=== PATIENT | female | born 1935 | race Caucasian/White ===

== ENCOUNTER 2021-02-20 10:58 | Inpatient (IN) | payer MEDICARE, BC ==
[~2021-02-20] VITALS: Ht 162.6 cm; Wt 65.6 kg
[2021-02-20] MEDS ORDERED: levETIRAcetam 500 MG/5ML INJ IV ONE (11:39)
[2021-02-20 12:19] LABS: Basophils # (auto) 0 10 ^3/uL (0-0.2); Basophils % (auto) 0.3 % (0.0-2.0); Eosinophils # (auto) 0.1 10 ^3/uL (0-0.8); Eosinophils % (auto) 0.5 % (0.0-7.0); Hematocrit 37.7 % (36.0-46.0); Hemoglobin 12.6 g/dL (12.2-16.2); Lymphocytes # (auto) 2.5 10 ^3/uL (0.4-5.4); Lymphocytes % (auto) 24.1 % (10.0-50.0); Mean Corpuscular Hemoglobin 28.9 pg (28.0-32.0); Mean Corpuscular Hgb Conc. 33.3 g/dL (32.0-36.0); Mean Corpuscular Volume 86.6 fL (80.0-100.0); Monocytes # (auto) 0.8 10 ^3/uL (0-1.3); Monocytes % (auto) 7.6 % (0.0-12.0); Neutrophils # (auto) 7.1 10 ^3/uL (1.6-8.6); Neutrophils % (auto) 67.5 % (37.0-80.0); Red Blood Cells 4.35 10^6/uL (4.0-5.20); Red Cell Distribution Width 13.9 % (11.8-14.3); White Blood Cell 10.6 10^3/uL (4.4-10.8)
[2021-02-20] MEDS ORDERED: VANCOMYCIN 1,500 MG in D5W 5% 250 ML IV ONE (12:30)
[2021-02-20 12:47] LABS: Albumin 2.6 g/dL (3.4-5.0); Magnesium 1.7 mg/dL (1.6-2.6); Potassium 3.9 mmol/L (3.5-5.1)
[2021-02-20 12:52] LABS: Bilirubin, Total 0.2 mg/dL (0.2-1.0); Total Protein 6.9 g/dL (6.4-8.2)
[2021-02-20] MEDS ORDERED: IOHEXOL 300 MG/ML 100ML BOTTLE IJ ONE (13:05)
[2021-02-20] MEDS ORDERED: MORPHINE SULF INJ 2 MG/ML SYRINGE 1ML IV PRN ×3 (15:30→16:45)
[2021-02-20] MEDS ORDERED: NITROGLYCERIN 0.4 MG SL TAB SL PRN ×2 (15:30→16:45)
[2021-02-20] MEDS ORDERED: LORazepam 0.5 MG TAB PO PRN (16:45)
[2021-02-20] MEDS ORDERED: ACYCLOVIR SOD 50MG/ML 500 MG in D5W 5% 100 ML IV ONE (16:45)
[2021-02-20] MEDS ORDERED: hydrALAZINE HCL 20 MG/ML VL IV PRN (16:45)
[2021-02-20] MEDS ORDERED: ONDANSETRON HCL 4 MG/2 ML VIAL IV PRN (16:45)
[2021-02-20] MEDS ORDERED: SUCRALFATE 1 GM/10 ML ORAL SUSP PO ONE (16:45)
[2021-02-20] MEDS ORDERED: ALUM & MAG HYDROX-SIMETH LIQ(MAALOX) 30 ML PO PRN (16:45)
[2021-02-20] MEDS ORDERED: LORazepam 2MG/ML-1ML VIAL IV PRN (16:45)
[2021-02-20] MEDS ORDERED: ACETAMINOPHEN 325 MG TAB PO PRN (16:45)
[2021-02-20] MEDS ORDERED: VANCOMYCIN PER PHARMACY 0 MG IV SCH (16:45)
[2021-02-20] MEDS ORDERED: AMPICILLIN INJ 1 GM in SODIUM CHL 0.9% 50 ML IV ONE (16:45)
[2021-02-20] MEDS ORDERED: LACTATED RINGER'S 1,000 ML IV ONE (16:45)
[2021-02-20] MEDS ORDERED: HYDROcodone-ACET 5/325MG TAB PO PRN (16:45)
[2021-02-20] MEDS ORDERED: METOPROLOL SUCCINATE XL 50 MG TAB PO ONE (16:45)
[2021-02-20] MEDS ORDERED: DOCUSATE SOD 100 MG CAP PO PRN (16:45)
[2021-02-20] MEDS: InsuLIN REG 1unit/0.01ml Soln (100units/ml) SC SCH ×2 (17:00→22:55)
[2021-02-20] MEDS: ACCU-CHEK COMFORT CURVE STRIP VI SCH ×2 (17:00→22:56)
[2021-02-20] MEDS: SUCRALFATE 1 GM/10 ML ORAL SUSP PO SCH ×2 (17:00→22:00)
[2021-02-20] MEDS ORDERED: cefTRIAXone 1GM/50ML D5W 50 ML IV ONE (17:30)
[2021-02-20] MEDS: ACYCLOVIR SOD 50MG/ML 500 MG in D5W 5% 100 ML IV SCH (18:14)
[2021-02-20 19:48] LABS: Folate (Folic Acid) > 24.00 ng/mL (5.38-24)
[2021-02-20 19:48] LABS: Cholesterol 139 mg/dL (< 200); Triglycerides 154 mg/dL (< 150)
[2021-02-20 19:50] LABS: HDL Cholesterol 54 mg/dL (40-59); LDL Cholesterol 59 mg/dL (< 100)
[2021-02-20] MEDS: AMPICILLIN INJ 1 GM in SODIUM CHL 0.9% 50 ML IV SCH ×2 (21:28→23:22)
[2021-02-20] MEDS: LACTATED RINGER'S 1,000 ML IV SCH (21:32)
[2021-02-20 21:55] VITALS: BP 148/92
[2021-02-20 22:00] VITALS: BP 148/92
[2021-02-20] MEDS: FAMOTIDINE (10MG/ML) 2ML VL IV SCH (22:46)
[2021-02-20 23:58] LABS: INR 0.94 (0.9-1.15); Partial Thromboplastin Time 23.6 sec (23.6-33.0)
[2021-02-21] MEDS: ACYCLOVIR SOD 50MG/ML 500 MG in D5W 5% 100 ML IV SCH ×3 (00:37→17:20)
[2021-02-21 05:00] VITALS: BP 147/79
[2021-02-21] MEDS: AMPICILLIN INJ 1 GM in SODIUM CHL 0.9% 50 ML IV SCH ×3 (06:03→18:31)
[2021-02-21] MEDS: LACTATED RINGER'S 1,000 ML IV SCH ×2 (06:05→20:32)
[2021-02-21] MEDS ORDERED: MET25T PO (06:34)
[2021-02-21] MEDS ORDERED: ALPR0.255 PO (06:34)
[2021-02-21] MEDS ORDERED: SUCR1TAB PO (06:34)
[2021-02-21] MEDS ORDERED: OMEP20TA PO (06:34)
[2021-02-21] MEDS ORDERED: LISI40TA11 PO (06:34)
[2021-02-21] MEDS ORDERED: LEVO50TA7 PO (06:34)
[2021-02-21] MEDS ORDERED: METF-370 (06:34)
[2021-02-21] MEDS ORDERED: AMLO-489 PO (06:34)
[2021-02-21] MEDS ORDERED: DONE5TAB80 PO (06:34)
[2021-02-21] MEDS: SUCRALFATE 1 GM/10 ML ORAL SUSP PO SCH ×4 (06:37→22:00)
[2021-02-21] MEDS: LEVOTHYROXINE SODIUM 50 MCG TAB PO SCH (06:37)
[2021-02-21] MEDS: ACCU-CHEK COMFORT CURVE STRIP VI SCH ×4 (06:38→22:01)
[2021-02-21] MEDS: InsuLIN REG 1unit/0.01ml Soln (100units/ml) SC SCH ×4 (06:38→22:01)
[2021-02-21 09:00] VITALS: BP 146/80
[2021-02-21] MEDS: METOPROLOL SUCCINATE XL 50 MG TAB PO SCH (10:00)
[2021-02-21] MEDS: LISINOPRIL 10 MG TAB PO SCH (10:00)
[2021-02-21] MEDS: ENOXAPARIN SOD 40 MG/0.4 ML SYRINGE SC SCH (10:22)
[2021-02-21] MEDS: FAMOTIDINE (10MG/ML) 2ML VL IV SCH (10:22)
[2021-02-21] MEDS: VANCOMYCIN 1GM/250ML 250 ML IV SCH (10:26)
[2021-02-21] MEDS: cefTRIAXone 1GM/50ML D5W 50 ML IV SCH (10:26)
[2021-02-21 13:00] VITALS: BP 120/74
[2021-02-21 13:46] LABS: Basophils # (auto) 0.1 10 ^3/uL (0-0.2); Basophils % (auto) 0.7 % (0.0-2.0); Eosinophils # (auto) 0 10 ^3/uL (0-0.8); Eosinophils % (auto) 0.4 % (0.0-7.0); Hematocrit 35.6 % (36.0-46.0); Hemoglobin 11.6 g/dL (12.2-16.2); Lymphocytes # (auto) 2.7 10 ^3/uL (0.4-5.4); Lymphocytes % (auto) 23.5 % (10.0-50.0); Mean Corpuscular Hemoglobin 28.1 pg (28.0-32.0); Mean Corpuscular Hgb Conc. 32.5 g/dL (32.0-36.0); Mean Corpuscular Volume 86.3 fL (80.0-100.0); Monocytes % (auto) 8.4 % (0.0-12.0); Neutrophils # (auto) 7.6 10 ^3/uL (1.6-8.6); Red Blood Cells 4.13 10^6/uL (4.0-5.20); Red Cell Distribution Width 13.9 % (11.8-14.3); White Blood Cell 11.4 10^3/uL (4.4-10.8)
[2021-02-21 14:01] LABS: BUN/Creatinine Ratio 19.5; Calcium 8.3 mg/dL (8.5-10.1); Potassium 3.6 mmol/L (3.5-5.1)
[2021-02-21 18:00] VITALS: BP 150/87
[2021-02-21] MEDS ORDERED: DONEPEZIL HYDROCHLORIDE 5 MG TAB PO SCH (22:00)
[2021-02-22] MEDS: AMPICILLIN INJ 1 GM in SODIUM CHL 0.9% 50 ML IV SCH ×3 (01:12→12:00)
[2021-02-22] MEDS: ACYCLOVIR SOD 50MG/ML 500 MG in D5W 5% 100 ML IV SCH ×2 (01:45→08:34)
[2021-02-22] MEDS: VANCOMYCIN 1GM/250ML 250 ML IV SCH (03:14)
[2021-02-22] MEDS ORDERED: METOPROLOL TARTRATE 1MG/1ML-5ML VIAL IV PRN (04:45)
[2021-02-22 05:28] VITALS: BP 139/92
[2021-02-22] MEDS: LEVOTHYROXINE SODIUM 50 MCG TAB PO SCH (06:10)
[2021-02-22] MEDS: SUCRALFATE 1 GM/10 ML ORAL SUSP PO SCH ×2 (06:10→11:00)
[2021-02-22] MEDS: ACCU-CHEK COMFORT CURVE STRIP VI SCH (06:35)
[2021-02-22] MEDS: InsuLIN REG 1unit/0.01ml Soln (100units/ml) SC SCH (06:35)
[2021-02-22 07:28] LABS: Basophils # (auto) 0 10 ^3/uL (0-0.2); Monocytes # (auto) 0.6 10 ^3/uL (0-1.3)
[2021-02-22 07:35] LABS: Basophils % (auto) 0.3 % (0.0-2.0); Eosinophils # (auto) 0.1 10 ^3/uL (0-0.8); Eosinophils % (auto) 0.8 % (0.0-7.0); Hematocrit 38.2 % (36.0-46.0); Hemoglobin 12.5 g/dL (12.2-16.2); Lymphocytes # (auto) 2.3 10 ^3/uL (0.4-5.4); Lymphocytes % (auto) 27.7 % (10.0-50.0); Mean Corpuscular Hemoglobin 28.8 pg (28.0-32.0); Mean Corpuscular Hgb Conc. 32.6 g/dL (32.0-36.0); Mean Corpuscular Volume 88.4 fL (80.0-100.0); Monocytes % (auto) 7.8 % (0.0-12.0); Neutrophils # (auto) 5.2 10 ^3/uL (1.6-8.6); Neutrophils % (auto) 63.4 % (37.0-80.0); Red Blood Cells 4.33 10^6/uL (4.0-5.20); Red Cell Distribution Width 14.4 % (11.8-14.3); White Blood Cell 8.2 10^3/uL (4.4-10.8)
[2021-02-22 07:44] LABS: Potassium 3.4 mmol/L (3.5-5.1)
[2021-02-22 07:51] LABS: Albumin 2.3 g/dL (3.4-5.0); BUN/Creatinine Ratio 15.5; Bilirubin, Total 0.4 mg/dL (0.2-1.0); Calcium 8.5 mg/dL (8.5-10.1); Total Protein 6.6 g/dL (6.4-8.2)
[2021-02-22] MEDS: cefTRIAXone 1GM/50ML D5W 50 ML IV SCH (08:33)
[2021-02-22] MEDS: ENOXAPARIN SOD 40 MG/0.4 ML SYRINGE SC SCH (08:35)
[2021-02-22] MEDS: FAMOTIDINE (10MG/ML) 2ML VL IV SCH (08:35)
[2021-02-22] MEDS: LACTATED RINGER'S 1,000 ML IV SCH (08:36)
[2021-02-22 09:00] VITALS: BP 145/93
[2021-02-22] MEDS: LISINOPRIL 10 MG TAB PO SCH (10:00)
[2021-02-22] MEDS: METOPROLOL SUCCINATE XL 50 MG TAB PO SCH (10:00)
[2021-02-22] MEDS ORDERED: TPN PER PHARMACY 0 ML IV SCH (11:00)
[2021-02-22] MEDS ORDERED: POTASSIUM CHLORIDE 20 MEQ, LIDOCAINE 1% (LOCAL ANESTH.) 2 ML in SODIUM CHL 0.9% 100 ML IV ONE (11:00)
[2021-02-22] MEDS ORDERED: ACCU-CHEK COMFORT CURVE STRIP VI SCH (13:30)
[2021-02-22] MEDS ORDERED: DEXTROSE (50%) 50ML SYRG IV SCH (13:30)
[2021-02-22] MEDS ORDERED: InsuLIN REG 1unit/0.01ml Soln (100units/ml) SC SCH (13:30)
== END 2021-02-22 14:07 | disposition left against medical advice (07) | DRG 871 ==
LOC: EDBD 10:58 → ER 10:58 → TELE 15:18 → TELE-WESTW 22:38
PROVIDERS: ADMIT Hospitalist; ATTEND Hospitalist
DX: A41.9 Sepsis, unspecified organism (principal); G92 Toxic encephalopathy; R53.2 Functional quadriplegia; G03.9 Meningitis, unspecified; E44.0 Moderate protein-calorie malnutrition; D68.69 Other thrombophilia; L03.818 Cellulitis of other sites; H70.009 Acute mastoiditis without complications, unspecified ear; L02.11 Cutaneous abscess of neck; I10 Essential (primary) hypertension; I48.0 Paroxysmal atrial fibrillation; J44.9 Chronic obstructive pulmonary disease, unspecified; K21.9 Gastro-esophageal reflux disease without esophagitis; K29.70 Gastritis, unspecified, without bleeding; B02.9 Zoster without complications; F17.200 Nicotine dependence, unspecified, uncomplicated; F03.90 Unspecified dementia, unspecified severity, without behavioral disturbance, psychotic disturbance, mood disturbance, and anxiety; Z20.822 Contact with and (suspected) exposure to COVID-19; Z53.29 Procedure and treatment not carried out because of patient's decision for other reasons; R13.10 Dysphagia, unspecified; E03.9 Hypothyroidism, unspecified; E11.21 Type 2 diabetes mellitus with diabetic nephropathy; R26.9 Unspecified abnormalities of gait and mobility; G40.401 Other generalized epilepsy and epileptic syndromes, not intractable, with status epilepticus; R62.7 Adult failure to thrive; Z74.01 Bed confinement status; Z88.2 Allergy status to sulfonamides; Z79.899 Other long term (current) drug therapy; Z83.3 Family history of diabetes mellitus; Z86.011 Personal history of benign neoplasm of the brain; Z86.61 Personal history of infections of the central nervous system; Z68.24 Body mass index [BMI] 24.0-24.9, adult
CPT/HCPCS: 36415; 70450; 70491; 71045; 71250; 80048; 80053; 80061; 82542; 82607; 82746; 82962; 83036; 83605; 83735; 84146; 84443; 84484; 85025; 85379; 85610; 85730; 87040; 87426; 92610; 93005; 96365; 96366; 96367; 96375; 97163; G0378; J0696; J1815; J2001; J3490; J7060